=== PATIENT | male | born 1935 | race Caucasian/White ===

== ENCOUNTER 2017-08-12 19:46 | Inpatient (IN) | payer OTHER ==
[~2017-08-12] VITALS: Ht 170.2 cm; Wt 74.8 kg
[2017-08-12 19:53] VITALS: BP 146/69
--- NOTE | 2017-08-12 20:05 | NUR ---
PT PLACED IN BED 2 BY EMS.
--- NOTE | 2017-08-12 20:30 | NUR ---
81Y/M BIBA W/ GENERALIZED WEAKNESS. HX DEMENTIA, HTN, DM, SHUNT TO LEFT ARM, NKA. PER EMS FAMILY CALLED 911 FOR GENERALIZED WEAKNESS X1 DAY. PT HAS HISTORY OF STROKE W/ RT SIDED WEAKNESS. PER EMS PT NORMAL GCS IS 14. PT IS AWAKE AND ALERT TO NAME. PT SPEAKS [place]. PT IN BED, NO APPARENT DISTRESS, VSS, COMFORT NEEDS MET AT THIS TIME, WILL CONTINUE TO MONITOR, ER MD AWARE OF PT STATUS.
[2017-08-12] MEDS ORDERED: LEVOFLOXACIN 750 MG/D5W PREMIX 150 ML IV ONE (21:50)
[2017-08-12] MEDS ORDERED: VANCOMYCIN 1,000 MG in DEXTROSE 5% 250 ML IV ONE (21:50)
[2017-08-12 22:10] LABS: BASOPHILS # (AUTO) 0.1 K/uL (0.00-0.22); BASOPHILS % (AUTO) 1.6 % (0.0-2.0); EOSINOPHILS # (AUTO) 0.3 K/uL (0-0.4); EOSINOPHILS % (AUTO) 4.2 % (0.0-4.0); HEMOGLOBIN 10.3 g/dL (12.0-18.0); LYMPHOCYTES # (AUTO) 1.3 K/uL (2.0-11.5); LYMPHOCYTES % (AUTO) 15.5 % (20.5-51.1); MEAN CORPUSCULAR HEMOGLOBIN 29 pg (27-31); MEAN CORPUSCULAR HGB CONC 33 g/dL (33-37); MEAN CORPUSCULAR VOLUME 87 fL (80-94); MONOCYTES # (AUTO) 0.8 K/uL (0.8-1.0); NEUTROPHILS # (AUTO) 5.6 K/uL (1.8-7.7); NEUTROPHILS % (AUTO) 68.7 % (42.2-75.2); PLATELET COUNT (AUTO) 346 K/uL (140-450); RED BLOOD CELL COUNT(AUTO) 3.55 MIL/uL (4.20-6.10); RED CELL DISTRIBUTION WIDTH 13.7 % (11.6-13.7); WHITE BLOOD COUNT (AUTO) 8.1 K/uL (4.8-10.8)
[2017-08-12 22:22] LABS: ALBUMIN 3.5 g/dL (3.4-5.0); ANION GAP 16.2 (8-16); ASPARTATE AMINOTRANSFERASE 13 U/L (15-37); CHLORIDE 98 mmol/L (98-107); GLUCOSE 116 mg/dL (74-106); SODIUM SERUM 138 mmol/L (136-145); TOTAL BILIRUBIN 0.5 mg/dL (0.0-1.0); UREA NITROGEN, BLOOD 59 mg/dL (7-18)
[2017-08-12 22:24] LABS: CREATININE 7.4 mg/dL (0.7-1.3)
[2017-08-12 22:25] LABS: POTASSIUM 5.2 mmol/L (3.5-5.1)
[2017-08-12] MEDS ORDERED: METO25TA PO (22:32)
[2017-08-12] MEDS ORDERED: MULT-1469 PO (22:32)
[2017-08-12] MEDS ORDERED: TAMS0.4C96 PO (22:32)
[2017-08-12] MEDS ORDERED: GABA300C PO (22:32)
[2017-08-12] MEDS ORDERED: DULO30EC PO (22:32)
[2017-08-12] MEDS ORDERED: CARB1TAB37 PO (22:32)
[2017-08-12] MEDS ORDERED: CALC-53 PO (22:32)
[2017-08-12] MEDS ORDERED: FURO-570 PO (22:32)
[2017-08-12] MEDS ORDERED: PAX10 PO (22:32)
[2017-08-12] MEDS ORDERED: DOCU-463 PO (22:32)
[2017-08-12] MEDS ORDERED: AMLO10TA PO (22:32)
[2017-08-12] MEDS ORDERED: SIMV10TA1 PO (22:32)
[2017-08-12] MEDS ORDERED: PHO667 PO (22:32)
[2017-08-12] MEDS ORDERED: ASPI81CT89 PO (22:32)
[2017-08-12] MEDS ORDERED: VANCOMYCIN 1,000 MG VIAL ONE (23:14)
--- NOTE | 2017-08-12 23:30 | NUR ---
PT IN BED RESTING, VSS, AT BEDSIDE.
[2017-08-12] MEDS ORDERED: ONDANSETRON 4 MG/2 ML VIAL IVP PRN (23:35)
[2017-08-12] MEDS ORDERED: ACETAMINOPHEN 325 MG TAB PO PRN (23:35)
[2017-08-12] MEDS ORDERED: ALBUTEROL SULFATE/IPRATROPIU 3 ML SOL IH PRN (23:35)
[2017-08-12] MEDS ORDERED: DEXTROSE 50% 50 ML SYR IVP PRN (23:35)
[2017-08-12] MEDS ORDERED: HYDROcodone/APAP 7.5/325 MG 1 TAB PO PRN (23:35)
[2017-08-13 00:14] LABS: PROTHROMBIN TIME 10.1 secs (10.8-13.4)
--- NOTE | 2017-08-13 00:20 | NUR ---
VANCOMYCIN GIVEN TO FLOOR NURSE TO START WHEN LEVAQUIN IS DONE RUNNING.
--- NOTE | 2017-08-13 00:20 | NUR ---
Patient will be admitted to care of DR CARMONA. Admited to TELE. Will go to room 106 B. Belongings list completed. Report to MANUEL.
[2017-08-13 00:24] LABS: FREE T4 (FREE THYROXINE) 0.82 ng/dL (0.76-1.46); MAGNESIUM 3.1 mg/dL (1.8-2.4); PHOSPHORUS 5.4 mg/dL (2.5-4.9); THYROID STIMULATING HORMONE 1.05 uIU/mL (0.34-3.74)
--- NOTE | 2017-08-13 00:30 | NUR ---
PT ARRIVED TO UNIT VIA GURNEY. RECEIVED REPORT AT BEDSIDE FROM SALES ENGINEER ENGINEERED PRODUCTS. PT A/OX1 ON ROOM AIR. PT HAS A 22G IV TO RIGHT HAND, DIALYSIS SHUNT TO LEFT FOREARM. FALL PRECAUTION PROTOCOL IN PLACE. SKIN INTACT. SAFETY PRECAUTIONS IN PLACE. UPDATED BOARD. VITAL SIGNS WITHIN NORMAL LIMITS. PT IN STABLE CONDITION, NO SIGNS OF DISTRESS NOTED. BED IN LOW POSITION, CALL LIGHT WITHIN REACH. WILL CONTINUE TO MONITOR.
[2017-08-13] MEDS: NACL 0.9% 1,000 ML IV SCH ×2 (01:15→19:32)
[2017-08-13 02:00] VITALS: BP 143/74
[2017-08-13 04:00] VITALS: BP 137/72
[2017-08-13] MEDS ORDERED: CLINDAMYCIN 600 MG/4 ML VIAL ONE (05:01)
[2017-08-13] MEDS: CLINDAMYCIN 600 MG in DEXTROSE 5% 50 ML IV SCH ×3 (05:06→20:33)
[2017-08-13 06:30] LABS: BASOPHILS # (AUTO) 0.1 K/uL (0.00-0.22); BASOPHILS % (AUTO) 0.7 % (0.0-2.0); EOSINOPHILS # (AUTO) 0.4 K/uL (0-0.4); EOSINOPHILS % (AUTO) 5.2 % (0.0-4.0); HEMATOCRIT 27.4 % (36-52); LYMPHOCYTES # (AUTO) 1.3 K/uL (2.0-11.5); LYMPHOCYTES % (AUTO) 17.7 % (20.5-51.1); MEAN CORPUSCULAR HEMOGLOBIN 29 pg (27-31); MEAN CORPUSCULAR HGB CONC 33 g/dL (33-37); MEAN CORPUSCULAR VOLUME 88 fL (80-94); MONOCYTES # (AUTO) 0.8 K/uL (0.8-1.0); NEUTROPHILS # (AUTO) 4.7 K/uL (1.8-7.7); NEUTROPHILS % (AUTO) 65.4 % (42.2-75.2); PLATELET COUNT (AUTO) 326 K/uL (140-450); WHITE BLOOD COUNT (AUTO) 7.3 K/uL (4.8-10.8)
[2017-08-13 06:41] LABS: CHLORIDE 99 mmol/L (98-107); GLUCOSE 125 mg/dL (74-106); SODIUM SERUM 137 mmol/L (136-145)
[2017-08-13 06:49] LABS: CHOL/HDL RATIO 2.8 (1-4.5); MAGNESIUM 2.8 mg/dL (1.8-2.4); PHOSPHORUS 5.8 mg/dL (2.5-4.9)
[2017-08-13] MEDS: BLOOD GLUCOSE MONITORING 1 DEV DEV FS SCH ×4 (06:56→20:30)
--- NOTE | 2017-08-13 07:30 | NUR ---
RECEIVED BEDSIDE REPORT AT BEDSIDE FROM NURSE MONITORING RN. PT A/OX1. IV NOTED TO RIGHT HAND 22 G, PATENT INTACT INFUSING WELL. DIALYSIS SHUNT TO LEFT ARM. FALL PRECAUTION PROTOCOL IN PLACE. SKIN INTACT. NO S/S OF DISTRESS NOTED. SAFETY PRECAUTIONS IN PLACE. BED IN LOW POSITION, CALL LIGHT WITHIN REACH. WILL CONTINUE TO MONITOR.
--- NOTE | 2017-08-13 07:36 | NUR ---
ENDORSED PT TO DAY SHIFT RN FOR CONTINUITY OF CARE, PT IN STABLE CONDITION.
[2017-08-13 07:55] LABS: CREATININE 7.5 mg/dL (0.7-1.3); UREA NITROGEN, BLOOD 62 mg/dL (7-18)
[2017-08-13 08:00] VITALS: BP 146/71
--- NOTE | 2017-08-13 08:52 | NUR ---
PATIENT HAS BEEN SCREENED AND CATEGORIZED MODERATE NUTRITION RISK. PATIENT WILL BE SEEN WITHIN 3-5 DAYS OF ADMISSION. 08/14/17-08/16/[address]
[2017-08-13] MEDS ORDERED: DOCUSATE SODIUM 100 MG GELCAP PO SCH (09:00)
[2017-08-13] MEDS: CALCIUM ACETATE 667 MG TAB PO SCH ×3 (09:01→17:22)
[2017-08-13] MEDS: ASPIRIN 81 MG TAB.CHEW PO SCH (09:01)
[2017-08-13] MEDS: LACTOBACILLUS RHAMNOSUS GG 1 EACH CAP PO SCH (09:01)
[2017-08-13] MEDS: CARBIDOPA/LEVODOPA 25/100 MG 1 TAB PO SCH ×4 (09:01→20:31)
[2017-08-13] MEDS: GABAPENTIN 300 MG CAP PO SCH ×3 (09:02→17:22)
[2017-08-13] MEDS: METOPROLOL 25 MG TAB PO SCH ×2 (09:02→20:31)
[2017-08-13] MEDS: DOCUSATE SODIUM 250 MG GELCAP PO SCH ×2 (09:02→20:31)
[2017-08-13] MEDS: TAMSULOSIN 0.4 MG CAP PO SCH (09:02)
[2017-08-13] MEDS: VIT-B COMP/VIT-C/FOLIC ACID 1 TAB PO SCH (09:02)
[2017-08-13] MEDS: CALCIUM CARB/VIT-D 500 MG/200 IU 1 TAB PO SCH (09:03)
[2017-08-13] MEDS: amLODIPine 5 MG TAB PO SCH (09:03)
[2017-08-13] MEDS: DULoxetine 30 MG CAPDR PO SCH ×2 (09:04→20:31)
[2017-08-13] MEDS: FUROSEMIDE 40 MG TAB PO SCH (09:04)
--- NOTE | 2017-08-13 09:25 | NUR ---
RECEIVED CALL FROM [facility] FOR PT UPDATE. PER [facility], PT HAD DIALYSIS ON THE Saturday.
--- NOTE | 2017-08-13 09:45 | NUR ---
NOTIFIED DR. HELTON ABOUT PT'S LAST DIALYSIS ON . DR HELTON WILL ORDER DIALYSIS.
[2017-08-13 12:00] VITALS: BP 136/65
--- NOTE | 2017-08-13 12:30 | NUR ---
PT IS HAVING DIALYSIS. NO S/S OF DISTRESS NOTED. WILL CONTINUE TO MONITOR.
--- NOTE | 2017-08-13 15:30 | NUR ---
NOTIFIED THAT FAMILY STATED PT HAVING THICKEN LIQUID AT HOME. MD WILL PUT IN NEW DIET ORDER.
--- NOTE | 2017-08-13 15:45 | NUR ---
PT FINISHED WITH DIALYSIS, NO S/S OF DISTRESS. VITALS WITHIN NORMAL LIMIT. 2L WAS REMOVED FROM DIALYSIS.
[2017-08-13 16:00] VITALS: BP 150/76
--- NOTE | 2017-08-13 16:48 | NUR ---
I contact Patient's Jeni Bhatia at to discuss and confirm Patient's information. Mrs. Bhatia stated that patient's health has been declining greatly over the last 2 years and that he is getting services from [facility] and [facility] Tuesdays, and Saturday's from 2:00pm to 5:00pm. Mrs. Bhatia stated not having contact number at the time but she will call social professionals with the information in a later time. Jeni Bhatia stated that patient also has been diagnosed with early stages of dementia and may be needing a higher level of care in the near future. Patient's stated that he has not done an advance directive and requested information. community center worker inform her that information and forms have been left for her and patient. She agreed and thank social professionals and ended the call.
[2017-08-13] MEDS: INSULIN LISPRO SLIDING SCALE 100 UNITS/ML VIAL SUBQ PRN ×2 (17:55→20:36)
--- NOTE | 2017-08-13 18:20 | NUR ---
RECEIVED CALL FROM RADIOLOGY FOR CT HEAD SCAN. TICKET TO RIDE PROVIDED.
--- NOTE | 2017-08-13 19:20 | NUR ---
RECEIVED BEDSIDE REPORT FROM DAY SHIFT NURSE ROCIO RN, PT STABLE, NO DISTRESS NOTED, IV TO R HAND 22G SL, CURRENTLY WAITING FOR CT, SHUNT TO L FA, INITIAL ASSESSMENT DONE, ALL SAFETY PRECAUTION MET, CALL LIGHT WITHIN REACH, WILL CONTINUE TO MONITOR.
--- NOTE | 2017-08-13 19:30 | NUR ---
ENDORSED PT TO WOODS RIDER RN FOR CONTINUITY OF CARE, PT IN STABLE CONDITION.
[2017-08-13] MEDS: SIMVASTATIN 10 MG TAB PO SCH (20:31)
[2017-08-14] VITALS: BP 148/72
--- NOTE | 2017-08-14 00:01 | NUR ---
CHECKED ON PT, PT SLEEPING, NO DISTRESS NOTED, CALL LIGHT WITHIN REACH, WILL CONTINUE TO MONITOR.
[2017-08-14] MEDS: CLINDAMYCIN 600 MG in DEXTROSE 5% 50 ML IV SCH ×3 (04:39→20:35)
[2017-08-14] MEDS: BLOOD GLUCOSE MONITORING 1 DEV DEV FS SCH ×4 (06:06→21:27)
--- NOTE | 2017-08-14 06:35 | NUR ---
IV INFILTRATED, NEW IV INSERTED, PT TOLERATED WELL, NO DISTRESS NOTED, STABLE, CALL LIGHT WITHIN REACH, WILL CONTINUE TO MONITOR.
[2017-08-14 06:50] LABS: BASOPHILS # (AUTO) 0.1 K/uL (0.00-0.22); BASOPHILS % (AUTO) 0.8 % (0.0-2.0); EOSINOPHILS # (AUTO) 0.3 K/uL (0-0.4); EOSINOPHILS % (AUTO) 3.8 % (0.0-4.0); HEMOGLOBIN 9.1 g/dL (12.0-18.0); LYMPHOCYTES # (AUTO) 1.2 K/uL (2.0-11.5); LYMPHOCYTES % (AUTO) 16.5 % (20.5-51.1); MEAN CORPUSCULAR HEMOGLOBIN 30 pg (27-31); MEAN CORPUSCULAR HGB CONC 34 g/dL (33-37); MEAN CORPUSCULAR VOLUME 88 fL (80-94); MONOCYTES # (AUTO) 0.8 K/uL (0.8-1.0); MONOCYTES % (AUTO) 10.2 % (1.7-9.3); NEUTROPHILS % (AUTO) 68.7 % (42.2-75.2); PLATELET COUNT (AUTO) 300 K/uL (140-450); RED BLOOD CELL COUNT(AUTO) 3.09 MIL/uL (4.20-6.10); WHITE BLOOD COUNT (AUTO) 7.4 K/uL (4.8-10.8)
[2017-08-14 07:00] LABS: ANION GAP 13.8 (8-16); CARBON DIOXIDE 28.6 mmol/L (21-32); CHLORIDE 99 mmol/L (98-107); GLUCOSE 99 mg/dL (74-106); POTASSIUM 4.4 mmol/L (3.5-5.1); SODIUM SERUM 137 mmol/L (136-145); UREA NITROGEN, BLOOD 45 mg/dL (7-18)
[2017-08-14 07:03] LABS: CREATININE 5.7 mg/dL (0.7-1.3)
--- NOTE | 2017-08-14 07:30 | NUR ---
ENDORSEMENT RECEIVED FROM SUPERVISOR CUTTING DEPARTMENT NURSE. PATIENT'S RESPIRATION EVEN, UNLABOR. SKIN DRY AND WARM. IV PATENT AND INTACT. DENIED PAIN, N/V AT THIS TIME. BED AT LOW POSITION, SIDE RAILS UP. CALL LIGHT WITHIN REACH. WILL CONTINUE TO MONITOR
--- NOTE | 2017-08-14 07:32 | NUR ---
GAVE BEDSIDE REPORT TO DAY SHIFT NURSE MICHELLE CASTRO, PT STABLE NO DISTRESS NOTED, CALL LIGHT WITHIN REACH
[2017-08-14 08:00] VITALS: BP 139/66
[2017-08-14] MEDS: METOPROLOL 25 MG TAB PO SCH ×3 (08:55→21:27)
[2017-08-14] MEDS: FUROSEMIDE 40 MG TAB PO SCH (08:56)
[2017-08-14] MEDS: GABAPENTIN 300 MG CAP PO SCH ×3 (08:56→17:20)
[2017-08-14] MEDS: VIT-B COMP/VIT-C/FOLIC ACID 1 TAB PO SCH (08:56)
[2017-08-14] MEDS: LACTOBACILLUS RHAMNOSUS GG 1 EACH CAP PO SCH (08:56)
[2017-08-14] MEDS: DOCUSATE SODIUM 250 MG GELCAP PO SCH (08:56)
[2017-08-14] MEDS: DULoxetine 30 MG CAPDR PO SCH ×2 (08:56→21:26)
[2017-08-14] MEDS: CALCIUM CARB/VIT-D 500 MG/200 IU 1 TAB PO SCH (08:56)
[2017-08-14] MEDS: ASPIRIN 81 MG TAB.CHEW PO SCH (08:57)
[2017-08-14] MEDS: amLODIPine 5 MG TAB PO SCH (08:57)
[2017-08-14] MEDS: CALCIUM ACETATE 667 MG TAB PO SCH ×3 (08:57→17:20)
[2017-08-14] MEDS: CARBIDOPA/LEVODOPA 25/100 MG 1 TAB PO SCH ×4 (08:57→21:27)
[2017-08-14] MEDS: TAMSULOSIN 0.4 MG CAP PO SCH (08:57)
--- NOTE | 2017-08-14 11:30 | NUR ---
PATIENT IS SLEEPING COMFORTABLY. RESPIRATIONE EVEN, UNLABOR. EASILY AROUSABLE BY SHAKING. NO DISTRESS NOTED. CALL LIGHT WITHIN REACH. WILL CONTINUE TO MONITOR
--- NOTE | 2017-08-14 14:24 | NUR ---
REPORT WAS GIVEN TO JOE CASTRO FOR CONTINUITY OF CARE. PATIENT IS STABLE AT THIS TIME
--- NOTE | 2017-08-14 14:25 | NUR ---
REPORT RECEIVED FROM GLORIA JUNIOR, AT BEDSIDE FOR CONTINUITY OF CARE. PATIENT IS GERMAN SPEAKING. PATIENT IS ON RA. RESPIRATIONS EVEN AND UNLABORED. IV TO R WRIST #22G WITH NS @ 50 ML/HR, ASYMPTOMATIC, INTACT, AND PATENT. SHUNT TO L FA. SKIN IS INTACT. NO SIGNS OF DISTRESS NOTED. NO COMPLAINTS OF PAIN AT THIS TIME. SAFETY PRECAUTIONS IN PLACE, BED ON LOWEST SETTING, CALL LIGHT WITHIN REACH. WILL CONTINUE TO MONITOR PATIENT.
[2017-08-14] MEDS ORDERED: DOCUSATE SODIUM 250 MG GELCAP PO PRN (14:45)
[2017-08-14] MEDS: NACL 0.9% 1,000 ML IV SCH (15:32)
[2017-08-14 16:00] VITALS: BP 148/92
--- NOTE | 2017-08-14 16:23 | NUR ---
PT IS RESTING COMFORTABLY. NO SIGNS OF DISTRESS. ASKED IF HE HAD ANY PAIN. HE SAID YES. ASKED HIM FROM 0-10, HOW WOULD HE RATE HIS PAIN. HE SAID 10/10. ASKED HIM WHERE. HE STATED ABD. ASKED HIM IF HE WANTED SOME PAIN MEDICATION, HE SAID NO. HE REFUSED PAIN MEDS. WILL CONTINUE TO MONITOR PT.
--- NOTE | 2017-08-14 19:10 | NUR ---
ENDORSED PT TO THE GRE INSTRUCTOR NURSE AT BEDSIDE FOR CONTINUITY OF CARE. PT IS IN STABLE CONDITION.
--- NOTE | 2017-08-14 19:11 | NUR ---
RECD. RESTING IN BED, AWAKE, A/OX3. RESPIRATION EVEN AND UNLABORED. IV OF NS AT 50 ML/HR INFUSING, RIGHT WRIST G 22. WITH LEFT FOREARM AV SHUNT FOR DIALYSIS. DENIES COUGHING, NOR HAVING PHLEGM. PLAN OF CARE FOR THE SHIFT DISCUSSED. VERBALIZED UNDERSTANDING. SAFETY MEASURES ENFORCE, CALL LIGHT IN REACH. DENIES PAIN 0/10.
--- NOTE | 2017-08-14 21:00 | NUR ---
Patient's Plan of Care was discussed and reviewed with ENGINEER GEOPHYSICAL LABORATORY: LEXY HAQ
[2017-08-14] MEDS: SIMVASTATIN 10 MG TAB PO SCH (21:27)
--- NOTE | 2017-08-14 21:27 | NUR ---
DUE PO MEDICATIONS GIVEN WITH APPLE SAUCE, TOLERATED WELL. SNACK GIVEN FOR THE NIGHT, ATE 100%.
[2017-08-15] VITALS: BP 145/65
--- NOTE | 2017-08-15 | NUR ---
NO SOB NOTED, SLEEPING ON HIS RIGHT SIDE.
[2017-08-15] MEDS: NACL 0.9% 1,000 ML IV SCH ×3 (02:18→20:28)
--- NOTE | 2017-08-15 04:00 | NUR ---
SPONGE BATH GIVEN. NOTED OPEN WOUND IN THE BUTTOCKS. WILL TAKE PICTURE. MADE COMFORTABLE IN BED.
[2017-08-15] MEDS: CLINDAMYCIN 600 MG in DEXTROSE 5% 50 ML IV SCH ×3 (04:41→20:25)
[2017-08-15] MEDS: BLOOD GLUCOSE MONITORING 1 DEV DEV FS SCH ×4 (05:53→21:01)
--- NOTE | 2017-08-15 06:48 | NUR ---
CONDITION REMAIN STABLE. WILL ENDORSE TO AM NURSE FOR CONTINUITY OF CARE.
--- NOTE | 2017-08-15 07:20 | NUR ---
ENDORSED TO GLORIA COCHRAN FOR CONTINUITY OF CARE.
--- NOTE | 2017-08-15 07:25 | NUR ---
RECEIVED REPORT FROM SENIOR TABLEAU DEVELOPER NURSE, PT IS SLEEPING IN BED BUT EASILY AWAKEN, PT IS A/OX2-3, PT AMBULATES WITH ASSIST, PT HAS LEFT FA AV SHUNT, PT HAS IV ON THE RIGHT WRIST, PATENT, INTACT, FLUSHING WELL, PT HAS WOUND ON HIS BUTTOCKS, PT IS INCONTINENT, NO S/S OF RESPIRATORY DISTRESS OR DISCOMFORT NOTED, DISCUSSED PLAN OF CARE WITH PT, PT VERBALIZED UNDERSTANDING, SAFETY/FALL PRECAUTIONS ARE IN PLACE, CALL LIGHT IS WITHIN REACH, WILL CONTINUE TO MONITOR.
[2017-08-15 07:39] LABS: BASOPHILS # (AUTO) 0.1 K/uL (0.00-0.22); BASOPHILS % (AUTO) 1.2 % (0.0-2.0); EOSINOPHILS # (AUTO) 0.3 K/uL (0-0.4); EOSINOPHILS % (AUTO) 4.1 % (0.0-4.0); HEMATOCRIT 27.4 % (36-52); HEMOGLOBIN 9.2 g/dL (12.0-18.0); LYMPHOCYTES % (AUTO) 16.9 % (20.5-51.1); MEAN CORPUSCULAR HEMOGLOBIN 29 pg (27-31); MEAN CORPUSCULAR HGB CONC 34 g/dL (33-37); MEAN CORPUSCULAR VOLUME 87 fL (80-94); MONOCYTES # (AUTO) 0.7 K/uL (0.8-1.0); MONOCYTES % (AUTO) 11.8 % (1.7-9.3); PLATELET COUNT (AUTO) 303 K/uL (140-450); RED BLOOD CELL COUNT(AUTO) 3.15 MIL/uL (4.20-6.10); RED CELL DISTRIBUTION WIDTH 13.5 % (11.6-13.7); WHITE BLOOD COUNT (AUTO) 6.1 K/uL (4.8-10.8)
[2017-08-15 07:49] LABS: ANION GAP 13.2 (8-16); CARBON DIOXIDE 28.4 mmol/L (21-32); CHLORIDE 100 mmol/L (98-107); GLUCOSE 110 mg/dL (74-106); POTASSIUM 4.6 mmol/L (3.5-5.1); SODIUM SERUM 137 mmol/L (136-145); UREA NITROGEN, BLOOD 54 mg/dL (7-18)
[2017-08-15 07:56] LABS: MAGNESIUM 2.5 mg/dL (1.8-2.4); PHOSPHORUS 5.7 mg/dL (2.5-4.9)
[2017-08-15 08:00] VITALS: BP 167/74
[2017-08-15 08:27] LABS: CREATININE 6.9 mg/dL (0.7-1.3)
[2017-08-15] MEDS: LACTOBACILLUS RHAMNOSUS GG 1 EACH CAP PO SCH (08:35)
[2017-08-15] MEDS: GABAPENTIN 300 MG CAP PO SCH ×3 (08:35→16:50)
[2017-08-15] MEDS: FUROSEMIDE 40 MG TAB PO SCH (08:35)
[2017-08-15] MEDS: ASPIRIN 81 MG TAB.CHEW PO SCH (08:35)
[2017-08-15] MEDS: METOPROLOL 25 MG TAB PO SCH ×2 (08:36→20:20)
[2017-08-15] MEDS: CALCIUM ACETATE 667 MG TAB PO SCH ×3 (08:36→16:50)
[2017-08-15] MEDS: DULoxetine 30 MG CAPDR PO SCH ×2 (08:36→20:20)
[2017-08-15] MEDS: CALCIUM CARB/VIT-D 500 MG/200 IU 1 TAB PO SCH (08:36)
[2017-08-15] MEDS: VIT-B COMP/VIT-C/FOLIC ACID 1 TAB PO SCH (08:36)
[2017-08-15] MEDS: amLODIPine 5 MG TAB PO SCH (08:36)
[2017-08-15] MEDS: CARBIDOPA/LEVODOPA 25/100 MG 1 TAB PO SCH ×4 (08:37→20:20)
[2017-08-15] MEDS: TAMSULOSIN 0.4 MG CAP PO SCH (08:37)
[2017-08-15] MEDS: Z-GUARD PASTE TP SCH (08:42)
--- NOTE | 2017-08-15 11:28 | NUR ---
PT SLEEPING IN BED BUT EASILY AWAKEN, CALL LIGHT IS WITHIN REACH.
[2017-08-15] MEDS: INSULIN LISPRO SLIDING SCALE 100 UNITS/ML VIAL SUBQ PRN ×2 (12:42→16:47)
--- NOTE | 2017-08-15 14:04 | NUR ---
HEPARIN ADMINISTERED BY DIALYSIS NURSE DURING DIALYSIS.
--- NOTE | 2017-08-15 15:09 | NUR ---
1130 MET WITH AND PT AT BEDSIDE WITH DARIEL MUELLER TO INTERPRET. DISCUSSED WITH MD RECOMMENDATION FOR SNF FOR PT AND OFFERED TO PROVIDE LIST OF SNF'S. STATED THAT [facility] WAS FINE IF THE PT WOULD HAVE SAME PHYSICIANS TO FOLLOW HIM. 1430 SPOKE WITH ANJUM IN ADMISSIONS AT [facility] [place] AND SHE STATED THAT PT IS ACCEPTED FOR ADMISSION WHEN READY. ANJUM WILL FOLLOW UP WITH PT'S OP DIALYSIS TO INQUIRE ABOUT TRANSPORTATION.
[2017-08-15 16:00] VITALS: BP 152/54
--- NOTE | 2017-08-15 16:36 | NUR ---
3 LITER OUTPUT FROM DIALYSIS. DIALYSIS COMPLETED AT THIS TIME.
--- NOTE | 2017-08-15 18:15 | NUR ---
PT RESTING IN BED AT THIS TIME, CALL LIGHT IS WITHIN REACH.
--- NOTE | 2017-08-15 19:10 | NUR ---
ENDORSED PT TO DEMAND PLANNING MANAGER NURSE FOR CONTINUITY OF CARE, PT STABLE AT THIS TIME.
--- NOTE | 2017-08-15 19:11 | NUR ---
PATIENT IS CURRENTLY RESTING IN BED SPEAKS AMHARIC CALM AND COOPERATIVE PERIODS OF FORGETFULNESS.IVF INFUSING WELL IV SITE PATENT NO COMPLAINS OF PAIN OR DISCOMFORT. PATIENT HAS SOME SKIN BREAKDOWN TO HIS BUTTOCKS AND HAS Z-GUARD CREAM ALREADY ORDERED. PATIENT ENCOURAGED TO DO INCENTIVE SPIROMETER AND ASSISTED TO DO BREATHING EXERCISES.CALL LIGHT WITHIN REACH WILL CONTINUE TO MONITOR.BED ALARM ON.
[2017-08-15 20:00] VITALS: BP 121/81
--- NOTE | 2017-08-15 20:00 | NUR ---
Patient's Plan of Care was discussed and reviewed with INCIDENT RESPONSE SPECIALIST: FIDE HOUGH
[2017-08-15] MEDS: SIMVASTATIN 10 MG TAB PO SCH (20:28)
[2017-08-15] MEDS ORDERED: LEVOFLOXACIN 750 MG/D5W PREMIX 150 ML IV SCH (21:00)
--- NOTE | 2017-08-15 23:20 | NUR ---
PATIENT SLEEPING IN BED PATIENT TURNED AND REPOSITIONED FOR COMFORT.
--- NOTE | 2017-08-16 01:30 | NUR ---
PATIENT RESTING IN BED WILL CONTINUE TO MONITOR.
--- NOTE | 2017-08-16 03:36 | NUR ---
PATIENT SLEEPING WELL ASSISTED TO TURN AND REPOSITION.WILL CONTINUE TO MONITOR.
--- NOTE | 2017-08-16 04:34 | NUR ---
PATIENT IS SLEEPING IN BED,IVF INFUSING WELL IV SITE PATENT,NEEDS MET WILL CONTINUE TO MONITOR. PATIENT CONTINUES TO BE ASSISTED TO TURN AND REPOSITION IN BED AND OFFLOADING DONE WITH PILLOWS.
[2017-08-16] MEDS: CLINDAMYCIN 600 MG in DEXTROSE 5% 50 ML IV SCH ×2 (05:11→12:12)
[2017-08-16] MEDS: BLOOD GLUCOSE MONITORING 1 DEV DEV FS SCH ×2 (06:11→12:07)
--- NOTE | 2017-08-16 06:33 | NUR ---
PATIENT STABLE RESTING IN BED NO DISTRESS NO COMPLAINS OF PAIN CONTINUES TO BE REPOSITIONED FOR COMFORT.IVF INFUSING WELL IV SITE PATENT.WILL CONTINUE TO MONITOR.
--- NOTE | 2017-08-16 07:15 | NUR ---
ENDORSEMENT WAS RECEIVED FROM SEAT COVERER NURSE. PATIENT IS SLEEPING, EASILY AROUSABLE BY NAME. RESPIRATION EVEN, UNLABOR. SKIN DRY AND WARM. IV PATENT AND INTACT. BED AT LOW POSITION, 2 SIDES RAILS ARE UP. CALL LIGHT WITHIN REACH. PLAN OF CARE WAS DISCUSSED WITH THE PATIENT.
--- NOTE | 2017-08-16 07:28 | NUR ---
PATIENT STABLE REPORT ENDORSED TO GLORIA ZHONG AT BEDSIDE.
[2017-08-16 08:00] VITALS: BP 155/68
[2017-08-16] MEDS: amLODIPine 5 MG TAB PO SCH (08:59)
[2017-08-16] MEDS: GABAPENTIN 300 MG CAP PO SCH ×2 (08:59→12:23)
[2017-08-16] MEDS: LACTOBACILLUS RHAMNOSUS GG 1 EACH CAP PO SCH (08:59)
[2017-08-16] MEDS: CARBIDOPA/LEVODOPA 25/100 MG 1 TAB PO SCH ×2 (09:00→12:23)
[2017-08-16] MEDS: CALCIUM ACETATE 667 MG TAB PO SCH ×2 (09:00→12:11)
[2017-08-16] MEDS: DULoxetine 30 MG CAPDR PO SCH (09:00)
[2017-08-16] MEDS: VIT-B COMP/VIT-C/FOLIC ACID 1 TAB PO SCH (09:00)
[2017-08-16] MEDS: CALCIUM CARB/VIT-D 500 MG/200 IU 1 TAB PO SCH (09:00)
[2017-08-16] MEDS: FUROSEMIDE 40 MG TAB PO SCH (09:00)
[2017-08-16] MEDS: TAMSULOSIN 0.4 MG CAP PO SCH (09:00)
[2017-08-16] MEDS: ASPIRIN 81 MG TAB.CHEW PO SCH (09:00)
[2017-08-16] MEDS: METOPROLOL 25 MG TAB PO SCH (09:00)
[2017-08-16] MEDS: Z-GUARD PASTE TP SCH (09:01)
--- NOTE | 2017-08-16 10:38 | NUR ---
[place] [facility] [place] ANJUM. THE PATIENT CAN GO TO ROOM 16A UNDER DR. SALCIDO ANYTIME. EVANGELINA CASTRO AWARE. LEILANI FROM [facility] GAVE AUTH FOR WC TRANSPORT, [id number]. THE HUMAN RESOURCES ASSOCIATE AT [facility] [place] BE ARRANGING TRANSPORT TO THE DIALYSIS CENTER THROUGH [facility]. I CALLED [facility] AND SET UP WC TRANSPORT FOR 1:30P.M. EVANGELINA CASTRO AWARE .
--- NOTE | 2017-08-16 11:08 | NUR ---
CALLED AND GAVE REPORT TO ARNIE CASTRO AT [facility] [place]. PATIENT'S FAMILY WAS NOTIFIED REGARDING THE TRANSFER.
[2017-08-16] MEDS ORDERED: LACT10CA PO (11:18)
[2017-08-16] MEDS ORDERED: CLIN300C2 PO (11:18)
[2017-08-16] MEDS ORDERED: LEVO750T2 PO (11:18)
--- NOTE | 2017-08-16 13:17 | NUR ---
DISCHARGE PACKAGE WAS GIVEN TO THE TRANSPORTER. IV WAS REMOVED WITH CATHETER INTACT, NO ACTIVE BLEEDING SEEN, PATIENT TOLERATED WELL. ID BAND WAS REMOVED. PICTURE WAS TAKEN FOR BUTTOCK WOUND. PATIENT WAS TRANSFERRED OUT IN A WHEELCHAIR BY TRANSPORTER. PATIENT IS STABLE AT THIS TIME.
== END 2017-08-16 13:15 | DRG 177 ==
LOC: MED 19:46 → MTU 22:19
PROVIDERS: ADMIT Family Medicine Sports Medicine; ATTEND Family Medicine Sports Medicine
PROC: 5A1D70Z Performance of Urinary Filtration, Intermittent, Less than 6 Hours Per Day (ICD-10-PCS; principal; 2017-08-13)
PROC: 5A1D70Z Performance of Urinary Filtration, Intermittent, Less than 6 Hours Per Day (ICD-10-PCS; 2017-08-15)
DX: J69.0 Pneumonitis due to inhalation of food and vomit (principal); N17.0 Acute kidney failure with tubular necrosis; D68.59 Other primary thrombophilia; E11.22 Type 2 diabetes mellitus with diabetic chronic kidney disease; E11.40 Type 2 diabetes mellitus with diabetic neuropathy, unspecified; I12.0 Hypertensive chronic kidney disease with stage 5 chronic kidney disease or end stage renal disease; E11.51 Type 2 diabetes mellitus with diabetic peripheral angiopathy without gangrene; N18.6 End stage renal disease; E11.65 Type 2 diabetes mellitus with hyperglycemia; E87.5 Hyperkalemia; G20 Parkinson's disease; N40.0 Benign prostatic hyperplasia without lower urinary tract symptoms; F03.90 Unspecified dementia, unspecified severity, without behavioral disturbance, psychotic disturbance, mood disturbance, and anxiety; E86.0 Dehydration; D63.1 Anemia in chronic kidney disease; E78.5 Hyperlipidemia, unspecified; Z99.2 Dependence on renal dialysis; Z79.82 Long term (current) use of aspirin; Z79.899 Other long term (current) drug therapy; Z79.4 Long term (current) use of insulin; Z86.73 Personal history of transient ischemic attack (TIA), and cerebral infarction without residual deficits
CPT/HCPCS: 36415; 70450; 71010; 80048; 80053; 82948; 83036; 83735; 83880; 84100; 84439; 84443; 84484; 85025; 85610; 85730; 87040; 87081; 90935; 93925; 93970; 96365; 97110; 97116; 97140; 97530; 99285; J1815; J1956; J3370; J3490; J7030; J7060; Q0092

== ENCOUNTER 2017-12-03 17:47 | Emergency (ER) | payer OTHER ==
[~2017-12-03] VITALS: Ht 172.7 cm; Wt 68.0 kg
[~2017-12-03 17:47] MED LIST: AMLO10TA PO; ASPI81CT89 PO; CALC-53 PO; CARB1TAB37 PO; CLIN300C2 PO; DOCU-463 PO; DULO30EC PO; FURO-570 PO; GABA300C PO; LACT10CA PO; LEVO750T2 PO; METO25TA PO; MULT-1469 PO; PAX10 PO; PHO667 PO; SIMV10TA1 PO; TAMS0.4C96 PO
[2017-12-03 17:49] VITALS: BP 166/68
[2017-12-03 18:59] VITALS: BP 151/64
== END 2017-12-03 18:59 | disposition home or self-care (01) ==
LOC: MED 17:47
DX: S92.512A Displaced fracture of proximal phalanx of left lesser toe(s), initial encounter for closed fracture (principal); E11.22 Type 2 diabetes mellitus with diabetic chronic kidney disease; I12.0 Hypertensive chronic kidney disease with stage 5 chronic kidney disease or end stage renal disease; N18.6 End stage renal disease; F03.90 Unspecified dementia, unspecified severity, without behavioral disturbance, psychotic disturbance, mood disturbance, and anxiety; Z86.73 Personal history of transient ischemic attack (TIA), and cerebral infarction without residual deficits; W22.8XXA Striking against or struck by other objects, initial encounter; Y93.89 Activity, other specified; Y92.89 Other specified places as the place of occurrence of the external cause; Y99.8 Other external cause status
CPT/HCPCS: 73630; 99284

== ENCOUNTER 2018-05-08 08:37 | Emergency (ER) | payer OTHER ==
[~2018-05-08] VITALS: Ht 172.7 cm; Wt 75.7 kg
[2018-05-08 08:37] VITALS: BP 170/67
[2018-05-08] MEDS ORDERED: NACL 0.9% 1,000 ML IV ONE (08:59)
[2018-05-08 09:27] LABS: BASOPHILS % (AUTO) 0.5 % (0.0-2.0); EOSINOPHILS # (AUTO) 0.2 K/uL (0-0.4); EOSINOPHILS % (AUTO) 2.1 % (0.0-4.0); HEMATOCRIT 32.3 % (36-52); LYMPHOCYTES # (AUTO) 0.9 K/uL (2.0-11.5); MEAN CORPUSCULAR HEMOGLOBIN 28 pg (27-31); MEAN CORPUSCULAR HGB CONC 34 g/dL (33-37); MEAN CORPUSCULAR VOLUME 82.1 fL (80-94); MONOCYTES # (AUTO) 0.9 K/uL (0.8-1.0); MONOCYTES % (AUTO) 10.7 % (1.7-9.3); NEUTROPHILS # (AUTO) 6.6 K/uL (1.8-7.7); NEUTROPHILS % (AUTO) 76.7 % (42.2-75.2); PLATELET COUNT (AUTO) 221 K/uL (140-450); RED BLOOD CELL COUNT(AUTO) 3.94 MIL/uL (4.20-6.10); RED CELL DISTRIBUTION WIDTH 14.5 % (11.6-13.7); WHITE BLOOD COUNT (AUTO) 8.6 K/uL (4.8-10.8)
[2018-05-08 09:49] LABS: ALBUMIN 3.5 g/dL (3.4-5.0); ANION GAP 9.3 (8-16); ASPARTATE AMINOTRANSFERASE 11 U/L (15-37); CARBON DIOXIDE 34.8 mmol/L (21-32); CHLORIDE 96 mmol/L (98-107); GLUCOSE 126 mg/dL (74-106); LIPASE 763 U/L (73-393); POTASSIUM 3.1 mmol/L (3.5-5.1); SODIUM SERUM 137 mmol/L (136-145); TOTAL BILIRUBIN 0.5 mg/dL (0.0-1.0)
[2018-05-08 09:54] LABS: CREATININE 7.6 mg/dL (0.7-1.3); UREA NITROGEN, BLOOD 68 mg/dL (7-18)
[2018-05-08 15:01] VITALS: BP 170/74
== END 2018-05-08 15:01 | disposition home or self-care (01) ==
LOC: MED 08:37
DX: E11.22 Type 2 diabetes mellitus with diabetic chronic kidney disease (principal); I12.0 Hypertensive chronic kidney disease with stage 5 chronic kidney disease or end stage renal disease; N18.6 End stage renal disease; I63.9 Cerebral infarction, unspecified; R94.31 Abnormal electrocardiogram [ECG] [EKG]; G31.89 Other specified degenerative diseases of nervous system; F03.90 Unspecified dementia, unspecified severity, without behavioral disturbance, psychotic disturbance, mood disturbance, and anxiety; Z99.2 Dependence on renal dialysis; Z79.899 Other long term (current) drug therapy; Z79.82 Long term (current) use of aspirin
CPT/HCPCS: 36415; 70450; 71045; 73562; 80053; 83690; 85025; 93005; 99285; J7030; Q0092

== ENCOUNTER 2018-07-29 23:25 | Emergency (ER) | payer OTHER ==
[~2018-07-29] VITALS: Ht 170.2 cm; Wt 74.8 kg
[2018-07-29 23:26] VITALS: BP 173/77
--- NOTE | 2018-07-29 23:35 | NUR ---
PT PRESENTS TO ED BIBA WITH C/O GENERALIZED WEAKENESS AND FLU LIKE SYMPTOMS X 1 WEEK S/P DISCHARGE FROM SNF. PT DENIES N/V/D. PT IS ANSWERING QUESTIONS APPROPRIATLEY, NO SIGNS OF DISTRESS NOTED. PMH--CVA, ESRD, HTN, HIP REPLACEMENT
--- NOTE | 2018-07-29 23:58 | NUR ---
PT REFUSING ALL LAB DRAWS AND IV START. ER MD NOTIFED.
--- NOTE | 2018-07-30 00:55 | NUR ---
PT SLEEPING COMFORTBALY, NO NEW COMPLAINTS OR CONCERNS AT THIS TIME. VSS.
[2018-07-30 03:01] LABS: BASOPHILS # (AUTO) 0.1 K/uL (0.00-0.22); BASOPHILS % (AUTO) 1.1 % (0.0-2.0); EOSINOPHILS # (AUTO) 0.1 K/uL (0-0.4); EOSINOPHILS % (AUTO) 1.3 % (0.0-4.0); HEMATOCRIT 32.6 % (36-52); HEMOGLOBIN 10.6 g/dL (12.0-18.0); LYMPHOCYTES # (AUTO) 1.3 K/uL (2.0-11.5); LYMPHOCYTES % (AUTO) 11.5 % (20.5-51.1); MEAN CORPUSCULAR HEMOGLOBIN 28 pg (27-31); MEAN CORPUSCULAR HGB CONC 33 g/dL (33-37); MEAN CORPUSCULAR VOLUME 84.5 fL (80-94); MONOCYTES # (AUTO) 0.4 K/uL (0.8-1.0); MONOCYTES % (AUTO) 3.2 % (1.7-9.3); NEUTROPHILS # (AUTO) 9.1 K/uL (1.8-7.7); NEUTROPHILS % (AUTO) 82.9 % (42.2-75.2); PLATELET COUNT (AUTO) 400 K/uL (140-450); RED BLOOD CELL COUNT(AUTO) 3.86 MIL/uL (4.20-6.10); RED CELL DISTRIBUTION WIDTH 14.4 % (11.6-13.7)
[2018-07-30] MEDS ORDERED: KETOROLAC 60 MG/2 ML VIAL IM ONE (03:10)
[2018-07-30 03:28] LABS: ANION GAP 10.7 (8-16); CARBON DIOXIDE 30.8 mmol/L (21-32); CHLORIDE 99 mmol/L (98-107); GLUCOSE 98 mg/dL (74-106); POTASSIUM 3.5 mmol/L (3.5-5.1); SODIUM SERUM 137 mmol/L (136-145)
[2018-07-30 03:29] LABS: UREA NITROGEN, BLOOD 19 mg/dL (7-18)
[2018-07-30 03:31] LABS: PROTHROMBIN TIME 10.7 secs (10.8-13.4)
--- NOTE | 2018-07-30 03:31 | NUR ---
IM MEDS GIVEN-NADR AT THIS TIME
[2018-07-30 03:41] LABS: ASPARTATE AMINOTRANSFERASE 13 U/L (15-37); TOTAL BILIRUBIN 0.5 mg/dL (0.0-1.0)
[2018-07-30 03:42] LABS: ALBUMIN 2.8 g/dL (3.4-5.0)
[2018-07-30 03:54] LABS: CREATININE 5.1 mg/dL (0.7-1.3)
--- NOTE | 2018-07-30 04:16 | NUR ---
PRE PT DOES NOT PRODUCE URUNE. HOLLY CONLEY NOTIFTED
--- NOTE | 2018-07-30 05:21 | NUR ---
Patient appears to be comfortably in bed. Vital Signs within normal limits. Respirations even and unlabored.
[2018-07-30 05:30] VITALS: BP 162/78
--- NOTE | 2018-07-30 05:31 | NUR ---
Patient discharged with v/s stable. Written and verbal after care instructions given and explained. Patient alert, oriented and verbalized understanding of instructions. Wheel Chair Assisted with by caregiver. All questions addressed prior to discharge. ID band removed. Patient advised to follow up with PMD. Rx of CIPRO, MOTRIN, NORCO given. Patient educated on indication of medication including possible reaction and side effects. Opportunity to ask questions provided and answered.
== END 2018-07-30 05:30 | disposition home or self-care (01) ==
LOC: MED 23:25
DX: N12 Tubulo-interstitial nephritis, not specified as acute or chronic (principal); R05 Cough; R09.89 Other specified symptoms and signs involving the circulatory and respiratory systems; R06.02 Shortness of breath; F03.90 Unspecified dementia, unspecified severity, without behavioral disturbance, psychotic disturbance, mood disturbance, and anxiety; E11.22 Type 2 diabetes mellitus with diabetic chronic kidney disease; I12.0 Hypertensive chronic kidney disease with stage 5 chronic kidney disease or end stage renal disease; N18.6 End stage renal disease; Z79.899 Other long term (current) drug therapy; Z86.73 Personal history of transient ischemic attack (TIA), and cerebral infarction without residual deficits; Z79.82 Long term (current) use of aspirin
CPT/HCPCS: 36415; 71045; 80053; 82550; 83605; 83880; 84484; 85025; 85610; 85730; 87040; 93005; 96372; 99284; J1885; Q0092

== ENCOUNTER 2018-10-03 20:11 | Inpatient (IN) | payer OTHER, MEDICAID ==
[~2018-10-03] VITALS: Ht 167.6 cm; Wt 77.1 kg
[2018-10-03 20:11] VITALS: BP 157/70
[~2018-10-03 20:11] MED LIST changes: +ASPI-1718 PO; -ASPI81CT89 PO
--- NOTE | 2018-10-03 20:11 | NUR ---
Patient BIBA BLS, transferred to bed 10. RN evaluating patient at bedside.
--- NOTE | 2018-10-03 20:11 | NUR ---
PT TRIAGED AT BEDSIDE. BIB EMS FROM HOME FOR ABD AND NO BM WITH TIME [place]. PT REFUSING VS'S AND TX AT THIS TIME.
--- NOTE | 2018-10-03 20:16 | NUR ---
PT REFUSED CARE. REFUSED TO BE ON MONITOR. CHARGE NURSE AWARE. ER DOCTOR MADE AWARE. EXPLAINED NEED OF CARE AND PLAN OF CARE TO THE PT BY ER DOCTOR. TISH REFUSED CARE.
--- NOTE | 2018-10-03 20:19 | NUR ---
Dr. Kelley evaluating patient at bedside.
--- NOTE | 2018-10-03 20:32 | NUR ---
Dr. Kelley re-evaluating patient at bedside.
--- NOTE | 2018-10-03 20:34 | NUR ---
HERE WITH PT. PT NOW COOPERATING WITH VSS. PT REFUSING TO PUT ON HOSPITAL GOWN BUT ONLY HAS ON T-SHIRT AND PAJAMO BOTTOMS.
[2018-10-03] MEDS ORDERED: KETO120S5 TP (20:39)
[2018-10-03] MEDS ORDERED: SENN8.6T70 PO (20:39)
[2018-10-03] MEDS ORDERED: OMEP20TC10 PO (20:39)
[2018-10-03] MEDS ORDERED: ONDA8TAB PO (20:39)
--- NOTE | 2018-10-03 20:46 | NUR ---
PT WAS BIB [facility] WITH THE CHIEF C/O ABDOMINAL PAIN SINCE 1 HOUR AGO. NO BM SINCE LAST NIGHT PER FAMILY. ABDOMEN SOFT ROUND AND NON-TENDER. ACTIVE BOWEL SOUND. DENIES NV/D AT THIS TIME. PER FAMILY PT C/O PAIN DURING URINATION. NO BLOOD IN URINE. AFEBRILE. PT FELL FROM BED 6 HOURS AGO TODAY. HIT HIS RIGHT LEG AND BACK PER FAMILY. NO ALOC AFTER FALL. PT C/O PAIN MOVING RIGHT LEG. ER DOCTOR MADE AWARE. NO SOB OR ACUTE DISTRESS NOTED. LUNGS CLEAR B/L. C/O ABDOMINAL PAIN 10/10 AT THIS TIME. ER MD MADE AWARE. CONTINUE ON MONITORING. FAMILY AT THE BEDSIDE.
--- NOTE | 2018-10-03 20:47 | NUR ---
Patient taken to CT scan/XRay via gurney by berna, accompanied by family.
--- NOTE | 2018-10-03 21:01 | NUR ---
PT BACK IN ROOM FROM CT, SON AND AT BEDSIDE.
--- NOTE | 2018-10-03 21:04 | NUR ---
PT ENCOURAGED TO COLLECT URINE FOR UA.
--- NOTE | 2018-10-03 21:58 | NUR ---
Dr. Kelley re-evaluating patient at bedside.
--- NOTE | 2018-10-03 21:59 | NUR ---
Pt. unable to void. straight catheter done. still no urine output. ER doctor made aware.
[2018-10-03] MEDS ORDERED: SODIUM PHOSPHATE 118 ML ENEM RC ONE (22:40)
--- NOTE | 2018-10-03 23:56 | NUR ---
Patient returned from CT scan. RN re-evaluating patient at bedside.
--- NOTE | 2018-10-04 00:10 | NUR ---
REPORT GIVEN TO
[2018-10-04] MEDS ORDERED: DOCUSATE SODIUM 100 MG GELCAP PO PRN (01:40)
[2018-10-04] MEDS ORDERED: HYDROcodone/APAP 5/325 MG 1 TAB TAB PO PRN (01:40)
[2018-10-04] MEDS ORDERED: ONDANSETRON 4 MG/2 ML VIAL IM/IVP PRN (01:40)
[2018-10-04] MEDS ORDERED: MORPHINE SULFATE 2 MG/ML SYR IVP PRN (01:40)
[2018-10-04] MEDS ORDERED: ACETAMINOPHEN 325 MG TAB PO PRN (01:40)
[2018-10-04] MEDS ORDERED: LIDOCAINE/PRILOCAINE 2.5% 5 GM TUBE TP ONE (01:40)
[2018-10-04 02:06] LABS: BASOPHILS % (AUTO) 0.3 % (0.0-2.0); EOSINOPHILS % (AUTO) 0.4 % (0.0-4.0); HEMATOCRIT 28.4 % (36-52); HEMOGLOBIN 9.3 g/dL (12.0-18.0); LYMPHOCYTES % (AUTO) 10.2 % (20.5-51.1); MEAN CORPUSCULAR HEMOGLOBIN 28 pg (27-31); MEAN CORPUSCULAR HGB CONC 33 g/dL (33-37); MEAN CORPUSCULAR VOLUME 86.6 fL (80-94); MONOCYTES % (AUTO) 10.8 % (1.7-9.3); NEUTROPHILS # (AUTO) 7.6 K/uL (1.8-7.7); NEUTROPHILS % (AUTO) 78.3 % (42.2-75.2); PLATELET COUNT (AUTO) 265 K/uL (140-450); RED BLOOD CELL COUNT(AUTO) 3.28 MIL/uL (4.20-6.10); RED CELL DISTRIBUTION WIDTH 14.7 % (11.6-13.7); WHITE BLOOD COUNT (AUTO) 9.6 K/uL (4.8-10.8)
[2018-10-04 02:23] LABS: ALBUMIN 3.7 g/dL (3.4-5.0); ANION GAP 11.5 (8-16); ASPARTATE AMINOTRANSFERASE 12 U/L (15-37); CARBON DIOXIDE 31.5 mmol/L (21-32); CHLORIDE 102 mmol/L (98-107); GLUCOSE 141 mg/dL (74-106); PROTHROMBIN TIME 10.4 secs (10.8-13.4); SODIUM SERUM 140 mmol/L (136-145); TOTAL BILIRUBIN 0.5 mg/dL (0.0-1.0); UREA NITROGEN, BLOOD 33 mg/dL (7-18)
--- NOTE | 2018-10-04 02:25 | NUR ---
ADMITTED A 82 Y/O OLD MALE FROM ER VIA [facility] WITH CHIEF COMPLAINT OF ABDOMINAL PAIN . PATIENT DX. WITH RIGHT KNEE FRACTURE. (+) LEFT ARM SHUNT WITH PALPABLE THRILL AND BRUIT.TRANSFERRED PATIENT TO BED WITH 3 PEOPLE ASSIST.MRSA NASAL SWAB DONE. PERSONAL BELONGINGS KEPT BY PATIENT FAMILY BRING IT HOME WITH THEM.SKIN INTACT. EXPLAINED PLAN OF CARE TO FAMILY MEMBERS. FALL PRECAUTION APPLIED. ROUTINE ADMISSION CARE DONE AND CARRY OUT ORDERS.V/ TAKEN. PLACE PATIENT IN COMFORTABLE POSITION COVERED WITH WARM BLANKET. PATIENT WAS CALM AND ASLEEP AT THIS TIME. ALL NEEDS ATTENDED. CALL LIGHT WITHIN REACH. NO SIGN OF DISTRESS NOTED AT THIS TIME. WILL CONTINUE TO MONITOR.
--- NOTE | 2018-10-04 02:34 | NUR ---
Patient will be admitted to care of DR JI. Admited to MED SURG. Will go to room 122-B. Belongings list completed. Report to GLORIA LOPEZ.
[2018-10-04 02:36] LABS: CREATININE 5.6 mg/dL (0.7-1.3)
[2018-10-04] MEDS ORDERED: DEXT 5% / NACL 0.45% 1,000 ML IV SCH (02:40)
[2018-10-04 02:44] LABS: CHOL/HDL RATIO 2.6 (1-4.5); MAGNESIUM 2.1 mg/dL (1.8-2.4); PHOSPHORUS 4.9 mg/dL (2.5-4.9); THYROID STIMULATING HORMONE 1.44 uIU/mL (0.34-3.74)
[2018-10-04] MEDS ORDERED: HYDR100T79 PO (02:52)
--- NOTE | 2018-10-04 04:30 | NUR ---
AM CARE DONE. REFUSED TO CLEAN AND CHANGED LINEN. PATIENT HAD EPISODE OF CONFUSION.
--- NOTE | 2018-10-04 07:30 | NUR ---
GAVE REPORT TO AM SHIFT RN AT BEDSIDE FOR CONTINUITY OF CARE. CALL LIGHT WITHIN REACH. ALL NEEDS ATTENDED. PATIENT IN STABLE CONDITION.
[2018-10-04 08:01] VITALS: BP 173/70
[2018-10-04] MEDS: NACL 0.9% 1,000 ML IV SCH ×2 (08:55→16:45)
--- NOTE | 2018-10-04 08:59 | NUR ---
PATIENT HAS BEEN SCREENED AND CATEGORIZED HIGH NUTRITION RISK. PATIENT WILL BE SEEN WITHIN 1-2 DAYS OF ADMISSION. 10/04/18-10/05/[address] Addendum: 10/04/18 at [address] PATIENT HAS BEEN SCREENED AND CATEGORIZED MODERATE NUTRITION RISK. PATIENT WILL BE SEEN WITHIN 1-2 DAYS OF ADMISSION. 10/07/18-10/09/[address]
[2018-10-04] MEDS: hydrALAZINE 25 MG TAB PO SCH ×3 (09:00→16:45)
[2018-10-04] MEDS: METOPROLOL 25 MG TAB PO SCH ×2 (09:00→20:23)
[2018-10-04 09:02] VITALS: BP 160/66
[2018-10-04] MEDS: ASPIRIN 81 MG TAB.CHEW PO SCH (09:13)
[2018-10-04] MEDS: GABAPENTIN 300 MG CAP PO SCH (09:13)
[2018-10-04] MEDS: DOCUSATE SODIUM 250 MG GELCAP PO SCH ×2 (09:13→20:24)
[2018-10-04] MEDS: amLODIPine 5 MG TAB PO SCH (09:13)
[2018-10-04] MEDS: DULoxetine 30 MG CAPDR PO SCH ×2 (09:14→20:24)
[2018-10-04] MEDS: TAMSULOSIN 0.4 MG CAP PO SCH (09:14)
[2018-10-04] MEDS: CARBIDOPA/LEVODOPA 25/100 MG 1 TAB PO SCH ×4 (09:14→20:22)
[2018-10-04] MEDS: PANTOPRAZOLE 40 MG TABEC PO SCH (09:14)
[2018-10-04] MEDS: FUROSEMIDE 40 MG/4 ML VIAL IVP SCH (09:15)
--- NOTE | 2018-10-04 09:37 | NUR ---
PT NOTE 0718 RECEIVED ORDER FOR PT EVAL, CHART REVIEWED. HOLD PT EVAL DUE TO PENDING ORTHO CONSULT WITH DR ESTRELLA; RN NOTIFIED.
--- NOTE | 2018-10-04 11:15 | NUR ---
PATIENT GIVEN BED BATH. PATIENT TURNED AND REPOSITIONED FOR COMFORT. KNEE IMMOBILIZER APPLIED ON THE RIGHT KNEE. PT TOLERATED WELL. WILL CONTINUE TO MONITOR
--- NOTE | 2018-10-04 12:35 | NUR ---
HEMODIALYSIS STARTED. PT ASLEEP IN BED. NO S/S OF DISTRESS NOTED
--- NOTE | 2018-10-04 13:03 | NUR ---
PATIENT SEEN BY DR HELTON
[2018-10-04 13:12] VITALS: BP 147/57
--- NOTE | 2018-10-04 14:09 | NUR ---
HEMODIALYSIS IN PROGRESS. PATIENT ASLEEP IN BED. NO S/S OF DISTRESS NOTED
--- NOTE | 2018-10-04 15:15 | NUR ---
HD DONE. 2.6L OUTPUT. BP 154/64. NO S/S OF DISTRESS NOTED
[2018-10-04] MEDS ORDERED: RENAL DOSING PER PHARMACY MC PRN (15:40)
[2018-10-04 16:00] VITALS: BP 156/62
--- NOTE | 2018-10-04 16:05 | NUR ---
RECEIVED BEDSIDE REPORT FROM GLORIA ALEJO. PT STABLE, SLEEPING, BUT EASILY AROUSABLE. NO SIGNS OF DISTRESS NOTED. NO SWELLING, REDNESS, OR INFLAMMATION NOTED ON IV SITE. CALL ACKERMAN WITHIN REACH. BED IN LOW POSITION. SAFETY MEASURES IN PLACE. PLAN OF CARE REVIEWED.
--- NOTE | 2018-10-04 16:47 | NUR ---
ADMINISTERED SCHEDULED MEDICATIONS. PT TOLERATED WELL. NO OTHER NEEDS AT THIS TIME.
--- NOTE | 2018-10-04 17:50 | NUR ---
PT STABLE, SLEEPING, BUT EASILY AROUSABLE. NO SIGNS OF DISTRESS NOTED.
--- NOTE | 2018-10-04 19:10 | NUR ---
ENDORSED PT TO RN GEORGE FOR CONTINUITY OF CARE. PT STABLE, AWAKE, AND ALERT.
--- NOTE | 2018-10-04 19:20 | NUR ---
RECEIVED BEDSIDE REPORT. PT IS AMHARIC SPEAKING. A&OX2. HAS HX OF DEMENTIA. PT ON ROOM AIR. NO S/S OF DISTRESS. IV ON R FA 20G INFUSING NS AT 20ML/H. PT WITH L AV SHUNT. PT HAD HD TODAY 2.6L REMOVED. DX R KNEE FRACTURE. KNEE IMMOBILIZER ON R LEG. PT DENIES ANY PAIN AT THIS. PEDAL PULSE IS PALPABLE. CAP REFILL ON LEG <2SECONDS. SKIN INTACT. PLAN OF CARE DISCUSSED WITH PT. FALL PRECAUTION IN PLACE. BED ALARM ON AND LOWEST POSITION. CALL LIGHT WITHIN REACH.
[2018-10-04] MEDS: SIMVASTATIN 10 MG TAB PO SCH (20:23)
--- NOTE | 2018-10-04 20:24 | NUR ---
DUE MEDICATIONS GIVEN WITH APPLESAUCE PT TOLERATED WELL. ALL NEEDS MET AT THIS TIME. CALL LIGHT WITHIN REACH. SAFETY MEASURES IN PLACE.
--- NOTE | 2018-10-04 22:43 | NUR ---
PT IS SLEEPING COMFORTABLY IN BED. SAFETY MEASURES ARE IN PLACE. CALL LIGHT WITHIN REACH.
[2018-10-04 23:45] VITALS: BP 154/69
--- NOTE | 2018-10-04 23:47 | NUR ---
VITAL SIGNS ARE WITHIN NORMAL LIMITS.CALL LIGHT WITHIN REACH. WILL CONTINUE TO MONITOR.
--- NOTE | 2018-10-05 01:09 | NUR ---
PT SLEEPING. NO S/S OF DISTRESS. SAFETY MEASURES ARE IN PLACE. CALL LIGHT WITHIN REACH.
--- NOTE | 2018-10-05 04:00 | NUR ---
PT IS SLEEPING COMFORTABLY IN BED. SAFETY MEASURES ARE IN PLACE.
[2018-10-05] MEDS: PANTOPRAZOLE 40 MG TABEC PO SCH (06:32)
--- NOTE | 2018-10-05 06:32 | NUR ---
DUE MEDICATION GIVEN WITH APPLESAUCE. PT TOLERATED WELL. ALL NEEDS MET AT THIS TIME. WILL CONTINUE TO MONITOR.
--- NOTE | 2018-10-05 07:22 | NUR ---
RECEIVED PATIENT REPORT AT BEDSIDE. PATIENT IS ASLEEP BUT AROUSABLE. PT ON ROOM AIR. NO SOB, NO S/S OF DISTRESS. KNEE IMMOBILIZER IN PLACE ON THE RIGHT KNEE. BED LOWERED WITH CALL LIGHT WITHIN REACH. WILL CONTINUE TO MONITOR
--- NOTE | 2018-10-05 07:22 | NUR ---
ENDORSED PT TO DAY SHIFT RN. PT IS IN STABLE CONDITION.
[2018-10-05 08:00] VITALS: BP 176/71
[2018-10-05 08:05] LABS: BASOPHILS % (AUTO) 0.3 % (0.0-2.0); EOSINOPHILS # (AUTO) 0.1 K/uL (0-0.4); EOSINOPHILS % (AUTO) 1.7 % (0.0-4.0); HEMATOCRIT 29.5 % (36-52); HEMOGLOBIN 9.5 g/dL (12.0-18.0); LYMPHOCYTES # (AUTO) 0.8 K/uL (2.0-11.5); LYMPHOCYTES % (AUTO) 11.2 % (20.5-51.1); MEAN CORPUSCULAR HEMOGLOBIN 28 pg (27-31); MEAN CORPUSCULAR HGB CONC 32 g/dL (33-37); MEAN CORPUSCULAR VOLUME 86.2 fL (80-94); MONOCYTES # (AUTO) 0.8 K/uL (0.8-1.0); MONOCYTES % (AUTO) 10.5 % (1.7-9.3); NEUTROPHILS # (AUTO) 5.5 K/uL (1.8-7.7); NEUTROPHILS % (AUTO) 76.3 % (42.2-75.2); PLATELET COUNT (AUTO) 283 K/uL (140-450); RED BLOOD CELL COUNT(AUTO) 3.42 MIL/uL (4.20-6.10); RED CELL DISTRIBUTION WIDTH 14.2 % (11.6-13.7); WHITE BLOOD COUNT (AUTO) 7.2 K/uL (4.8-10.8)
[2018-10-05 08:09] LABS: T4 (THYROXINE) 6.8 ug/dL (4.5-12.0)
[2018-10-05 08:16] LABS: ANION GAP 8.4 (8-16); CARBON DIOXIDE 33.2 mmol/L (21-32); CHLORIDE 106 mmol/L (98-107); GLUCOSE 97 mg/dL (74-106); POTASSIUM 4.6 mmol/L (3.5-5.1); SODIUM SERUM 143 mmol/L (136-145); UREA NITROGEN, BLOOD 20 mg/dL (7-18)
[2018-10-05 08:20] LABS: CREATININE 4.3 mg/dL (0.7-1.3)
[2018-10-05] MEDS: GABAPENTIN 300 MG CAP PO SCH (08:41)
[2018-10-05] MEDS: ASPIRIN 81 MG TAB.CHEW PO SCH (08:41)
[2018-10-05] MEDS: amLODIPine 5 MG TAB PO SCH (08:42)
[2018-10-05] MEDS: CARBIDOPA/LEVODOPA 25/100 MG 1 TAB PO SCH ×4 (08:42→20:20)
[2018-10-05] MEDS: DULoxetine 30 MG CAPDR PO SCH ×2 (08:43→20:20)
[2018-10-05] MEDS: hydrALAZINE 25 MG TAB PO SCH ×3 (08:43→17:10)
[2018-10-05] MEDS: METOPROLOL 25 MG TAB PO SCH ×2 (08:43→20:20)
--- NOTE | 2018-10-05 08:43 | NUR ---
ADMINISTERED DUE MEDICATIONS. PT TOLERATED WELL. WILL CONTINUE TO MONITOR
[2018-10-05] MEDS: FUROSEMIDE 40 MG/4 ML VIAL IVP SCH (08:44)
[2018-10-05] MEDS: DOCUSATE SODIUM 250 MG GELCAP PO SCH ×2 (08:44→20:20)
[2018-10-05] MEDS: TAMSULOSIN 0.4 MG CAP PO SCH (08:44)
[2018-10-05 12:12] VITALS: BP 135/63
--- NOTE | 2018-10-05 15:35 | NUR ---
PT IS ASLEEP IN BED. NO S/S OF DISTRESS NOTED
[2018-10-05 17:09] VITALS: BP 150/64
--- NOTE | 2018-10-05 19:29 | NUR ---
PT REPORT GIVEN AT BEDSIDE. PT ENDORSED IN STABLE CONDITION
--- NOTE | 2018-10-05 19:30 | NUR ---
RECEIVED BEDSIDE REPORT. PT IS SINHALA SPEAKING. A&OX3. HAS HX OF DEMENTIA. PT ON ROOM AIR. NO S/S OF DISTRESS. IV ON R FA 20G INFUSING NS AT 20ML/H. PT WITH L AV SHUNT. DX R KNEE FRACTURE. KNEE IMMOBILIZER ON R LEG. PT DENIES ANY PAIN AT THIS. PEDAL PULSE IS PALPABLE. CAP REFILL ON LEG <2SECONDS. SKIN INTACT. PLAN OF CARE DISCUSSED WITH PT. FALL PRECAUTION IN PLACE. BED ALARM ON AND LOWEST POSITION. CALL LIGHT WITHIN REACH.
[2018-10-05] MEDS: SIMVASTATIN 10 MG TAB PO SCH (20:20)
--- NOTE | 2018-10-05 20:20 | NUR ---
DUE MEDICATIONS GIVEN. PT TOLERATED WELL. PT DENIES ANY PAIN. SAFETY MEASURES ARE IN PLACE. WILL CONTINUE TO MONITOR.
[2018-10-06] VITALS: BP 150/64
--- NOTE | 2018-10-06 | NUR ---
VS ARE WITHIN NORMAL LIMITS.ALL NEEDS MET AT THIS TIME. CALL LIGHT WITHIN REACH.
--- NOTE | 2018-10-06 02:30 | NUR ---
PT IS SLEEPING COMFORTABLY IN BED. NO S/S OF DISTRESS. SAFETY MEASURES ARE IN PLACE. CALL LIGHT WITHIN REACH.
--- NOTE | 2018-10-06 04:00 | NUR ---
PT IS SLEEPING COMFORTABLY IN BED. NO S/S OF DISTRESS. SAFETY MEASURES ARE IN PLACE. CALL LIGHT WITHIN REACH.
[2018-10-06] MEDS: PANTOPRAZOLE 40 MG TABEC PO SCH (06:32)
--- NOTE | 2018-10-06 06:32 | NUR ---
DUE MEDICATION GIVEN. PT TOLERATED WELL. ALL NEEDS MET AT THIS TIME. SAFETY MEASURES ARE IN PLACE.
--- NOTE | 2018-10-06 07:20 | NUR ---
ENDORSED PT TO DAY SHIFT RN. PT IS IN STABLE CONDITION.
--- NOTE | 2018-10-06 07:21 | NUR ---
RECEIVED RPEORT FROM PM NURSE AT BEDSIDE. PT SLEEPING AT THIS TIME. HAS AV SHUNT ON LFT ARM. IS ON STRICT I&O. HAS LEG IMMOBILIZER. HD ON SAT, SATURDAY AND SAT. LAST HD ON , TOTAL OUTPUT 2.6 L. ROMANIAN SPEAKING ONLY, UPDATED BOARD. CALL LIGHT WITHIN PT REACH. NO SIGN OF DISTRESS NOTED. WILL CONTINUE TO MONITOR PT.
[2018-10-06 07:45] LABS: BASOPHILS % (AUTO) 0.7 % (0.0-2.0); EOSINOPHILS # (AUTO) 0.3 K/uL (0-0.4); EOSINOPHILS % (AUTO) 5.3 % (0.0-4.0); HEMATOCRIT 28.5 % (36-52); HEMOGLOBIN 9.5 g/dL (12.0-18.0); LYMPHOCYTES # (AUTO) 0.9 K/uL (2.0-11.5); MEAN CORPUSCULAR HEMOGLOBIN 29 pg (27-31); MEAN CORPUSCULAR HGB CONC 33 g/dL (33-37); MEAN CORPUSCULAR VOLUME 86.2 fL (80-94); MONOCYTES # (AUTO) 0.7 K/uL (0.8-1.0); MONOCYTES % (AUTO) 12.7 % (1.7-9.3); NEUTROPHILS # (AUTO) 3.8 K/uL (1.8-7.7); NEUTROPHILS % (AUTO) 66.3 % (42.2-75.2); PLATELET COUNT (AUTO) 277 K/uL (140-450); RED BLOOD CELL COUNT(AUTO) 3.31 MIL/uL (4.20-6.10); RED CELL DISTRIBUTION WIDTH 14.2 % (11.6-13.7); WHITE BLOOD COUNT (AUTO) 5.8 K/uL (4.8-10.8)
[2018-10-06 08:00] VITALS: BP 178/78
[2018-10-06 08:36] LABS: ANION GAP 8.2 (8-16); CARBON DIOXIDE 30.6 mmol/L (21-32); CHLORIDE 105 mmol/L (98-107); GLUCOSE 84 mg/dL (74-106); POTASSIUM 4.8 mmol/L (3.5-5.1); SODIUM SERUM 139 mmol/L (136-145); UREA NITROGEN, BLOOD 31 mg/dL (7-18)
[2018-10-06 08:38] LABS: CREATININE 5.8 mg/dL (0.7-1.3)
[2018-10-06 08:46] LABS: MAGNESIUM 1.9 mg/dL (1.8-2.4); PHOSPHORUS 5.1 mg/dL (2.5-4.9)
[2018-10-06] MEDS: DULoxetine 30 MG CAPDR PO SCH ×2 (08:46→20:31)
[2018-10-06] MEDS: METOPROLOL 25 MG TAB PO SCH ×2 (08:46→20:32)
[2018-10-06] MEDS: FUROSEMIDE 40 MG/4 ML VIAL IVP SCH (08:46)
[2018-10-06] MEDS: TAMSULOSIN 0.4 MG CAP PO SCH (08:47)
[2018-10-06] MEDS: CARBIDOPA/LEVODOPA 25/100 MG 1 TAB PO SCH ×4 (08:47→20:32)
[2018-10-06] MEDS: GABAPENTIN 300 MG CAP PO SCH (08:47)
[2018-10-06] MEDS: DOCUSATE SODIUM 250 MG GELCAP PO SCH ×2 (08:47→20:32)
[2018-10-06] MEDS: ASPIRIN 81 MG TAB.CHEW PO SCH (08:47)
[2018-10-06] MEDS: hydrALAZINE 25 MG TAB PO SCH ×3 (08:48→17:06)
[2018-10-06] MEDS: amLODIPine 5 MG TAB PO SCH (08:48)
[2018-10-06] MEDS: NACL 0.9% 1,000 ML IV SCH (08:55)
[2018-10-06] MEDS ORDERED: CALCIUM ACETATE 667 MG TAB PO SCH ×2 (09:59→17:00)
[2018-10-06] MEDS ORDERED: BISACODYL 10 MG SUPP RC SCH (10:03)
--- NOTE | 2018-10-06 12:57 | NUR ---
CHECKED ON PT. ADMINISTERED MEDS TO PT . REFUSED RECTAL SUPPOSITORY. INFORMED HIM THAT MED WILL HELP WITH BOWEL MOVEMENT. STATES HE DOESN'T EAT , SO HAS NO MD. DOES NOT WANT SUPPOSITORY. NO SIGN OF DISTRESS NOTED. CALL LIGHT WITHIN REACH. WILL CONTINUE TO MONITOR PT.
--- NOTE | 2018-10-06 14:30 | NUR ---
CHECKED ON PT. LYING COMFORTABLY IN HIS BED. PT TO GO FOR CT US WITH IV CONTRAST. INFORMED PT. CONSENT IS OBTAINED . NO SIGN OF DISTRESS NOTED. ALL SAFETY MEASURE IN PLACE. WILL CONTINUE TO MONITOR PT.
--- NOTE | 2018-10-06 14:31 | NUR ---
WRONG PATIENT. NOTE WAS FOR 105A.
--- NOTE | 2018-10-06 14:35 | NUR ---
PT LYING COMFORTABLY IN HIS BED. SLEEPING AT THIS TIME. IVF INFUSING WELL. ALL SAFETY MEASURE IN PLACE. NO SIGN OF DISTRESS NOTED. WILL CONTINUE TO MONITOR PT.
[2018-10-06 16:00] VITALS: BP 149/64
--- NOTE | 2018-10-06 17:08 | NUR ---
ADMINISTERED MEDS TO PT ORDERED. NO SIGN OF DISTRESS. ALL SAFETY MEASURE IN PLACE. CALL LIGHT WITHIN REACH. WILL CONTINUE TO MONITOR PT.
--- NOTE | 2018-10-06 19:10 | NUR ---
ENDORSED PT TO PM NURSE AT BEDSIDE. PT IN STABLE CONDITION.
--- NOTE | 2018-10-06 19:10 | NUR ---
PATIENT IN BED, ON RA, NO SIGNS OF DISTRESS, IV IN RIGHT FA 20 G INFUSING NS AT 20 ML/HR, NOTED LEFT AV SHUNT. EXPLAINED PLAN OF CARE, UPDATED BORED. BP 155/68 HR 75 WILL GIVE DUE MEDICATIONS.
--- NOTE | 2018-10-06 20:30 | NUR ---
DUE MEDICATIONS GIVEN PATIENT TOLERATED WELL, BED ALARM ON. CALL LIGHT WITHIN REACH.
[2018-10-06] MEDS: SIMVASTATIN 10 MG TAB PO SCH (20:32)
--- NOTE | 2018-10-06 23:05 | NUR ---
NOTIFIED [facility] OF HD SCHEDULED FOR TOMORROW, ORDER IN CHART.
[2018-10-07] VITALS: BP 159/67
--- NOTE | 2018-10-07 00:23 | NUR ---
V/S TAKEN NOTED BP 159/67 HR 71. WILL CONTINUE TO MONITOR. BED ALARM ON.
--- NOTE | 2018-10-07 02:08 | NUR ---
PATIENT ASLEEP IN BED, NO SIGNS OF DISTRESS, CALL LIGHT WITHIN REACH, WILL CONTINUE TO MONITOR.
[2018-10-07] MEDS: NACL 0.9% 1,000 ML IV SCH (03:30)
--- NOTE | 2018-10-07 03:31 | NUR ---
STARTED NEW IVF NS INFUSING AT 20 ML/HR
[2018-10-07] MEDS: PANTOPRAZOLE 40 MG TABEC PO SCH (06:24)
--- NOTE | 2018-10-07 07:11 | NUR ---
ENDORSED PATIENT TO DAY SHIFT NURSE, PATIENT STABLE.
--- NOTE | 2018-10-07 07:20 | NUR ---
REPORT RECIEVED FROM NIGHT SIHFT NURSE, PT SLEEPING QUIETLY IN NAD, RESP EVEN UNLABORED, RIGHT LEG IN KNEE IMMOBILIZER, POC REVIEWED, ALL SAFETY MEASURES IN PLACE, WILL CONTINUE TO MONITOR.
[2018-10-07 08:00] VITALS: BP 173/78
--- NOTE | 2018-10-07 08:20 | NUR ---
FAXED INQUIRY TO [facility].
[2018-10-07] MEDS: METOPROLOL 25 MG TAB PO SCH ×2 (09:00→20:19)
[2018-10-07] MEDS: amLODIPine 5 MG TAB PO SCH (09:00)
[2018-10-07] MEDS: hydrALAZINE 25 MG TAB PO SCH ×3 (09:00→17:00)
[2018-10-07] MEDS: FUROSEMIDE 40 MG/4 ML VIAL IVP SCH (09:26)
[2018-10-07] MEDS: GABAPENTIN 300 MG CAP PO SCH (09:27)
[2018-10-07] MEDS: DOCUSATE SODIUM 250 MG GELCAP PO SCH ×2 (09:27→20:19)
[2018-10-07] MEDS: DULoxetine 30 MG CAPDR PO SCH ×2 (09:27→20:20)
[2018-10-07] MEDS: ASPIRIN 81 MG TAB.CHEW PO SCH (09:27)
[2018-10-07] MEDS: TAMSULOSIN 0.4 MG CAP PO SCH (09:27)
[2018-10-07] MEDS: CARBIDOPA/LEVODOPA 25/100 MG 1 TAB PO SCH ×4 (09:28→20:20)
--- NOTE | 2018-10-07 09:54 | NUR ---
UP OUT OF BED WITH PT.
--- NOTE | 2018-10-07 10:04 | NUR ---
[facility] CALLED FOR UPDATE, KAL[facility] WAS INFORMED THAT PT IS PLANNED TO GO TO [place] TOMORROW
--- NOTE | 2018-10-07 10:06 | NUR ---
[facility] CALLED TO NOTIFY OF DIALYSIS ORDER FOR TODAY.
--- NOTE | 2018-10-07 12:06 | NUR ---
PT SLEEPING QUIETLY IN NAD, RESP EVEN UNLABORED, AROUSES EASILY BY VOICE, YVAN DUE MEDICATION WITHOUT PROBLEM, PT WENT BACK TO SLEEP.
--- NOTE | 2018-10-07 13:08 | NUR ---
RECEIVED A CALL EARLIER FROM DANIELLE FROM [place]. THEY WILL BE ABLE TO TAKE THE PATIENT TOMORROW. TO GO TO ROOM [address] UNDER DR[address] SIMONS. SHE WILL PROVIDE TRANSPORT, JUST CALL HER TO TIME TOMORROW [phone].
[2018-10-07 16:00] VITALS: BP 188/80
--- NOTE | 2018-10-07 16:40 | NUR ---
DIALYSIS NURSE AT BEDSIDE
--- NOTE | 2018-10-07 19:19 | NUR ---
DIALYSIS ON GOING, PT SLEEPING, IN NAD, REPORT GIVEN TO [employer] NURSE.
--- NOTE | 2018-10-07 19:20 | NUR ---
REPORT RECEIVED FROM AM NURSE AT BEDSIDE. PT IN STABLE CONDITION. AAOX2. INTRODUCED SELF TO PT. BOARD UPDATED. IV SITE R FA 22G RUNNING NS@20ML/HR PATENT AND INTACT. L ARM AV SHUNT. SKIN WARM, DRY, AND INTACT WITH NO OPEN WOUNDS. BED LOCKED IN LOW POSITION. CALL [facility] WITHIN REACH. SAFETY PRECAUTIONS IN PLACE. ALL NEEDS MET AT THIS TIME. Addendum: 10/07/18 at 1948 by Eladio Ellsworth RN PT GETTING DIALYSIS.
--- NOTE | 2018-10-07 20:19 | NUR ---
COLACE, CYMBALTA, LOPRESSOR, SINEMET, AND ZOCOR GIVEN PO. HEPARIN GIVEN SUBQ. PT TOLERATED WELL.
[2018-10-07] MEDS: SIMVASTATIN 10 MG TAB PO SCH (20:20)
--- NOTE | 2018-10-07 21:25 | NUR ---
PT IN BED SLEEPING COMFORTABLY SUPINE. NO S/S OF DISTRESS NOTED. WILL CONTINUE TO MONITOR.
[2018-10-08] VITALS: BP 194/82
[2018-10-08] MEDS: hydrALAZINE 25 MG TAB PO SCH ×2 (00:05→10:47)
--- NOTE | 2018-10-08 00:05 | NUR ---
PT BP 194/82. NOTIFIED. NEW ORDER TO GIVE HYDRALAZINE EARLY. PT HAD HD LAST NIGHT AND HYDRALAZINE WAS NOT GIVEN. Addendum: 10/08/18 at 0020 by Eladio Ellsworth RN HYDRALAZINE GIVEN PO. PT TOLERATED WELL.
--- NOTE | 2018-10-08 02:00 | NUR ---
PT AWAKE AND ALERT BUT CONFUSED. SAYS HE WANTS TO GO HOME. DOES NOT KNOW HES IN THE HOSPITAL. WILL CONTINUE TO MONITOR.
--- NOTE | 2018-10-08 04:30 | NUR ---
PT WOKE UP SAYING HE WANTS TO GO HOME. TOLD HIM HE WILL POSSIBLY BE DISCHARGED TODAY. SAT IN BED FOR 5 MINUTES THEN WENT TO SLEEP. NO S/S OF DISTRESS NOTED. WILL CONTINUE TO MONITOR.
--- NOTE | 2018-10-08 06:00 | NUR ---
PT SLEEPING COMFORTABLY IN BED. NO S/S OF DISTRESS NOTED. WILL CONTINUE TO MONITOR.
[2018-10-08] MEDS: PANTOPRAZOLE 40 MG TABEC PO SCH (06:31)
--- NOTE | 2018-10-08 06:31 | NUR ---
PROTONIX GIVEN PO. PT TOLERATED WELL.
[2018-10-08 06:53] LABS: ANION GAP 12.1 (8-16); CARBON DIOXIDE 30.3 mmol/L (21-32); CHLORIDE 103 mmol/L (98-107); GLUCOSE 80 mg/dL (74-106); POTASSIUM 4.4 mmol/L (3.5-5.1); SODIUM SERUM 141 mmol/L (136-145); UREA NITROGEN, BLOOD 22 mg/dL (7-18)
[2018-10-08 07:00] LABS: CREATININE 4.4 mg/dL (0.7-1.3)
--- NOTE | 2018-10-08 07:00 | NUR ---
[facility] CALLED IN OF CREATININE OF 4.4.
[2018-10-08 07:07] LABS: BASOPHILS % (AUTO) 0.6 % (0.0-2.0); HEMATOCRIT 27.9 % (36-52); HEMOGLOBIN 9.2 g/dL (12.0-18.0); LYMPHOCYTES % (AUTO) 10.1 % (20.5-51.1); MEAN CORPUSCULAR HEMOGLOBIN 28 pg (27-31); MEAN CORPUSCULAR HGB CONC 33 g/dL (33-37); MEAN CORPUSCULAR VOLUME 85.5 fL (80-94); MONOCYTES % (AUTO) 12.6 % (1.7-9.3); NEUTROPHILS # (AUTO) 4.5 K/uL (1.8-7.7); NEUTROPHILS % (AUTO) 73.7 % (42.2-75.2); PLATELET COUNT (AUTO) 279 K/uL (140-450); RED BLOOD CELL COUNT(AUTO) 3.26 MIL/uL (4.20-6.10); RED CELL DISTRIBUTION WIDTH 14.4 % (11.6-13.7); WHITE BLOOD COUNT (AUTO) 6.1 K/uL (4.8-10.8)
[2018-10-08 07:08] LABS: EOSINOPHILS # (AUTO) 0.2 K/uL (0-0.4); LYMPHOCYTES # (AUTO) 0.6 K/uL (2.0-11.5); MONOCYTES # (AUTO) 0.8 K/uL (0.8-1.0)
--- NOTE | 2018-10-08 07:10 | NUR ---
REPORT GIVEN TO AM NURSE AT BEDSIDE. PT IN STABLE CONDITION.
[2018-10-08 07:30] LABS: MAGNESIUM 1.8 mg/dL (1.8-2.4); PHOSPHORUS 4.1 mg/dL (2.5-4.9)
[2018-10-08 08:30] VITALS: BP 208/91
--- NOTE | 2018-10-08 08:30 | NUR ---
BP 208/91 HR 73. NO S/S OF DISTRESS NOTED. NOTIFIED DR ROSA. PER , ADMINISTER MORNING MEDICATIONS AND CONTINUE TO MONITOR
[2018-10-08] MEDS: amLODIPine 5 MG TAB PO SCH (08:51)
[2018-10-08] MEDS: CARBIDOPA/LEVODOPA 25/100 MG 1 TAB PO SCH ×2 (08:52→12:33)
[2018-10-08] MEDS: GABAPENTIN 300 MG CAP PO SCH (08:52)
[2018-10-08] MEDS: TAMSULOSIN 0.4 MG CAP PO SCH (08:52)
[2018-10-08] MEDS: DOCUSATE SODIUM 250 MG GELCAP PO SCH (08:52)
[2018-10-08] MEDS: DULoxetine 30 MG CAPDR PO SCH (08:52)
[2018-10-08] MEDS: METOPROLOL 25 MG TAB PO SCH (08:52)
[2018-10-08] MEDS: FUROSEMIDE 40 MG/4 ML VIAL IVP SCH (08:53)
[2018-10-08] MEDS: ASPIRIN 81 MG TAB.CHEW PO SCH (08:53)
[2018-10-08] MEDS: NACL 0.9% 1,000 ML IV SCH (08:55)
[2018-10-08] MEDS ORDERED: BISACODYL 10 MG SUPP RC SCH (09:00)
[2018-10-08 10:20] VITALS: BP 198/85
--- NOTE | 2018-10-08 10:20 | NUR ---
BP RECHECKED 198/85. NO S/S OF DISTRESS NOTED. DR RUBY NOTIFIED
[2018-10-08] MEDS ORDERED: HYDR-5123 PO (10:42)
--- NOTE | 2018-10-08 10:45 | NUR ---
SPOKE WITH DR ROSA. PER , HOLD ORDERED METOPROLOL AND ADMINISTER APRESOLINE EARLIER THAN SCHEDULED.
[2018-10-08] MEDS ORDERED: METOPROLOL 25 MG TAB PO SCH ×2 (11:00→21:00)
[2018-10-08] MEDS ORDERED: HYDROcodone/APAP 7.5/325 MG 1 TAB PO SCH (11:00)
[2018-10-08 12:31] VITALS: BP 187/73
[2018-10-08] MEDS ORDERED: hydrALAZINE 20 MG/ML VIAL IVP SCH (12:42)
[2018-10-08 14:16] VITALS: BP 154/68
--- NOTE | 2018-10-08 16:15 | NUR ---
SPOKE TO ANTHONY FROM [facility] AND GAVE PATIENT REPORT
--- NOTE | 2018-10-08 16:17 | NUR ---
INFORMED PATIENT'S THAT PATIENT IS BEING TRANSFERRED TO [place]
--- NOTE | 2018-10-08 16:23 | NUR ---
PATIENT PICKED UP BY [facility] TO BE DISCHARGED TO [place]. IV LINE DISCONTINUED. DISCHARGE PRESCRIPTIONS GIVEN. PATIENT LEFT WITH ALL HIS BELONGINGS AND DISCHARGE PAPERS. PATIENT LEFT IN STABLE CONDITION
== END 2018-10-08 16:20 | DRG 682 ==
LOC: MED 20:11 → MTU 10-04 01:38
PROVIDERS: ADMIT General Practice; ATTEND General Practice
PROC: 5A1D70Z Performance of Urinary Filtration, Intermittent, Less than 6 Hours Per Day (ICD-10-PCS; principal; 2018-10-04)
PROC: 5A1D70Z Performance of Urinary Filtration, Intermittent, Less than 6 Hours Per Day (ICD-10-PCS; 2018-10-07)
DX: N17.0 Acute kidney failure with tubular necrosis (principal); I50.43 Acute on chronic combined systolic (congestive) and diastolic (congestive) heart failure; I13.2 Hypertensive heart and chronic kidney disease with heart failure and with stage 5 chronic kidney disease, or end stage renal disease; I43 Cardiomyopathy in diseases classified elsewhere; S82.54XA Nondisplaced fracture of medial malleolus of right tibia, initial encounter for closed fracture; N18.6 End stage renal disease; E11.22 Type 2 diabetes mellitus with diabetic chronic kidney disease; D63.8 Anemia in other chronic diseases classified elsewhere; F03.90 Unspecified dementia, unspecified severity, without behavioral disturbance, psychotic disturbance, mood disturbance, and anxiety; G20 Parkinson's disease; I27.21 Secondary pulmonary arterial hypertension; E11.42 Type 2 diabetes mellitus with diabetic polyneuropathy; E83.39 Other disorders of phosphorus metabolism; E78.00 Pure hypercholesterolemia, unspecified; R62.7 Adult failure to thrive; E78.5 Hyperlipidemia, unspecified; N40.0 Benign prostatic hyperplasia without lower urinary tract symptoms; W06.XXXA Fall from bed, initial encounter; K59.00 Constipation, unspecified; S80.01XA Contusion of right knee, initial encounter; Z99.2 Dependence on renal dialysis; Z79.82 Long term (current) use of aspirin; Z79.899 Other long term (current) drug therapy; Z86.73 Personal history of transient ischemic attack (TIA), and cerebral infarction without residual deficits; Z68.27 Body mass index [BMI] 27.0-27.9, adult; Z74.01 Bed confinement status; Y93.89 Activity, other specified; Y92.89 Other specified places as the place of occurrence of the external cause; Y99.8 Other external cause status; Z79.4 Long term (current) use of insulin
CPT/HCPCS: 36415; 73502; 73562; 73700; 80048; 80053; 82150; 83036; 83605; 83690; 83735; 83880; 84100; 84436; 84443; 84484; 85025; 85610; 85730; 87081; 90935; 97116; 97530; 99285; J0360; J1644; J1940; J2270; J7030; Q0092